=== PATIENT | male | born 2000 | race African-American/Black ===

== ENCOUNTER 2021-07-05 15:38 | Emergency (ER) | payer OTHER ==
[2021-07-05 15:45] VITALS: BP 105/71; PULSE 74; TEMP 98.6
[2021-07-05 17:23] LABS: BASO % 0.3 % (0-2.0); EOS % 0.8 % (0-4.5); HEMATOCRIT 46.1 % (35.4-49); HEMOGLOBIN 15.1 GM/dL (11.7-16.9); LYMPH % 17.4 % (8-40); MCH 25.5 pg (25.7-33.7); MCHC 32.8 g/dl (32.0-35.9); MEAN CELL VOLUME 77.7 fl (80-96); MEAN PLT VOLUME 8.9 fl (7.5-11.1); MONO % 9.3 % (3.8-10.2); NEUT % 72.2 % (42.8-82.8); PLATELET COUNT 201 10^3/uL (134-434); RBC 5.93 M/mm3 (4.00-5.60); RDW 14.1 % (11.9-15.9); WHITE BLOOD COUNT 5.1 K/mm3 (4.0-10.0)
[2021-07-05 17:41] LABS: ALBUMIN 4.6 g/dl (3.4-5.0); CALCIUM 9.5 mg/dL (8.5-10.1); INR 1.15 (0.83-1.09); PROTHROMBIN TIME (PATIENT) 13.3 SEC (9.7-13.0)
[2021-07-05 17:42] LABS: BLOOD UREA NITROGEN 10.6 mg/dL (7-18)
[2021-07-05 17:44] LABS: CREATININE 0.9 mg/dL (0.55-1.3)
[2021-07-05 17:46] LABS: BILIRUBIN,TOTAL 0.8 mg/dL (0.2-1); TOT PROT 7.9 g/dl (6.4-8.2)
[2021-07-05 18:07] LABS: SYPHILIS W/ RPR CONF NON-REACTIVE (NONREACTIVE)
[2021-07-05 18:36] LABS: HIV INTERPRETATION NEGATIVE (NEGATIVE)
[2021-07-05 20:48] LABS: EPI CELLS 1 /uL (0-25.1); HYALINE CASTS 0 /uL (0-3.1); PH,URINE 5.5 (5.0-8.0); URINE APPEARANCE CLEAR; URINE BACTERIA 1 /uL (0-1359); URINE BILIRUBIN NEGATIVE (NEGATIVE); URINE COLOR YELLOW; URINE GLUCOSE (UA) NEGATIVE (NEGATIVE); URINE KETONE TRACE (NEGATIVE); URINE LEUK ESTERASE NEGATIVE (NEGATIVE); URINE NITRITE NEGATIVE (NEGATIVE); URINE PROTEIN NEGATIVE (NEGATIVE); URINE RBC 1 /uL (0-23.9); URINE UROBILINOGEN 0.2 mg/dL (0.2-1.0); URINE WBC 1 /uL (0-25.8)
== END 2021-07-05 19:45 | disposition home or self-care (01) ==
LOC: JERFT 15:38
DX: R59.0 Localized enlarged lymph nodes (principal)
CPT/HCPCS: 36415; 72193-TC; 80053; 81003; 85025; 85610; 86780; 86850; 86900; 86901; 87086; 87389; 87491; 87591; 99285-25; Q9967